=== PATIENT | female | born 1965 | race Two or more races ===

== ENCOUNTER 2019-04-14 09:04 | Day surgery (SDC) | payer OTHER ==
[2019-04-14] VITALS (11 sets, daily range): BP systolic 122–156; BP diastolic 64–85
[~2019-04-14] VITALS: Ht 162.6 cm; Wt 80.7 kg
--- NOTE | 2019-04-14 07:22 | Pre-Procedure Note/Attestation ---
Pre-Procedure Note/Attestation Complete Prior to Procedure Planned Procedure: right Procedure Narrative: shoulder arthroscopy, sad, possible rc repair Indications for Procedure Pre-Operative Diagnosis: right shoulder impingement, rct Attestation I attest that I discussed the nature of the procedure; its benefits; risks and complications; and alternatives (and the risks and benefits of such alternatives ), prior to the procedure, with the patient (or the patient's legal account service representative). I attest that, if there was a reasonable possibility of needing a blood transfusion, the patient (or the patient's legal account service representative) was given the [facility] standardized written summary, pursuant to the Eliud Antonio Blood Safety Act ([place] Health and Safety Code # 1645, as amended). I attest that I re-evaluated the patient just prior to the surgery and that there has been no change in the patient's H&P, except as documented below: Antony Colon MD Apr 14, 2019 07:22
--- NOTE | 2019-04-14 07:22 | Operative Note - PDOC ---
Operative Note Operative Note Pre-op Diagnosis: right shoulder impingement, rct Procedure: see op report Post-op Diagnosis: same as pre-op plus Operative Findings: consistent w/pre-op dx studies Anesthesia: regional, MAC Specimen: none Complications: none Condition: stable Estimated Blood Loss: none Implant(s) used?: No Antony Colon MD Apr 14, 2019 07:22
[~2019-04-14 09:04] MED LIST: HYDROcodone/Acetamin 5/325 tab ORAL PRN; ceFAZolin 1gm IVPB IVPB ONE; celeBREX 200mg Cap **SURGERY PATIENTS ONLY ORAL ONE; oxyCONTIN 20mg tab ORAL ONE
[2019-04-14] MEDS ORDERED: ATORVASTATIN CA40 MG ORAL (09:51)
[2019-04-14] MEDS ORDERED: LISINOPRIL10 MG ORAL (09:51)
[2019-04-14] MEDS ORDERED: celeBREX 200mg Cap **SURGERY PATIENTS ONLY ORAL ONE (10:00)
[2019-04-14] MEDS ORDERED: oxyCONTIN 20mg tab ORAL ONE (10:00)
[2019-04-14] MEDS ORDERED: Kenalog-40 1ml Vial ONE (11:42)
[2019-04-14] MEDS ORDERED: Duramorph PF 5mg/10ml amp ONE (11:43)
[2019-04-14] MEDS ORDERED: Ketorolac 30mg Inj ONE ×2 (11:43→12:00)
[2019-04-14] MEDS ORDERED: EPINEPHrine 1mg/1ml Amp ONE (11:44)
[2019-04-14] MEDS ORDERED: Hydromorphone 0.5mg/0.5ml inj IVP PRN (11:45)
[2019-04-14] MEDS ORDERED: Metoclopramide 10mg/2ml Inj IVP PRN (11:45)
[2019-04-14] MEDS ORDERED: LORazepam Inj 2mg/ml 1ml IV PRN (11:45)
--- NOTE | 2019-04-14 11:45 | Anethesia Preoperative Eval ---
Anesthesia Pre-op PMH/ROS General Date of Evaluation: Apr 14, 2019 Time of Evaluation: 11:42 Anesthesiologist: KANE ASA Score: ASA 2 Mallampati Score Class I : Soft palate, uvula, fauces, pillars visible Class II: Soft palate, uvula, fauces visible Class III: Soft palate, base of uvula visible Class IV: Only hard plate visible Mallampati Classification: Class I Surgeon: TASHIA Diagnosis: R SHOULDER PAIN Surgical Procedure: R SHOULDER ARTHROSCOPY Anesthesia History: none Family History: no anesthesia problems Allergies: Coded Allergies: No Known Allergies (Unverified , 04/13/19) Medications: see eMAR Patient NPO?: Yes NPO Date: Apr 13, 2019 Past Medical History Cardiovascular: Reports: HTN, other - hl Neurologic/Psychiatric: Reports: depression/anxiety PSxH Narrative: btl Anesthesia Pre-op Phys. Exam Physician Exam Last Vital Signs Date Time Temp Pulse Resp B/P (MAP) Pulse Ox O2 Delivery O2 Flow Rate FiO2 04/14/19 09:56 Room Air 04/14/19 09:45 97.5 63 18 122/69 99 Constitutional: NAD Cardiovascular: RRR Respiratory: CTA Airway Exam Mallampati Score: Class I MO: full ROM: full Anesthesia Pre-op A/P Risk Assessment & Plan Assessment: ASA 2 Plan: GETA PONV PORPHYLAXIS INTERSCALENE BLOCK Herminia Zuñiga M.D. Apr 14, 2019 11:45
[2019-04-14] MEDS ORDERED: Propofol 200mg/20ml IV ONE (12:00)
[2019-04-14] MEDS ORDERED: Lidocaine 1% MPF 10mg/ml 5ml ONE (12:00)
[2019-04-14] MEDS ORDERED: Sterile Water Irrig 1000ml IRRIG ONE (12:00)
[2019-04-14] MEDS ORDERED: LR 1000ml ONE (12:00)
[2019-04-14] MEDS ORDERED: Ropivacaine 5mg/ml Vial 30ml INJ ONE (12:00)
[2019-04-14] MEDS ORDERED: Dexamethasone 4mg/ml vial ONE (12:00)
[2019-04-14] MEDS ORDERED: fentaNYL 100 mcg/2 mL IV ONE (12:01)
[2019-04-14] MEDS ORDERED: NS Irrig 4000ml IRRIG ONE ×4 (12:29→14:03)
[2019-04-14] MEDS ORDERED: Duramorph PF 5mg/10ml amp IT ONE ×2 (12:29→12:58)
[2019-04-14] MEDS ORDERED: Succinylcholine 20mg/ml 10ml vial ONE (13:56)
--- NOTE | 2019-04-14 14:13 | 48 Hour Post Anesthesia Eval ---
Post Anesthesia Evaluation Date of Evaluation: Apr 14, 2019 Time of Evaluation: 14:12 Blood Pressure Systolic: 138 0: 79 Pulse Rate: 76 Respiratory Rate: 18 Temperature (Fahrenheit): 97.2 O2 Sat by Pulse Oximetry: 100 Airway: patent Nausea: No Vomiting: No Pain Intensity: 1 Hydration Status: adequate Mental Status/LOC: patient returned to baseline Follow-up care needed: ready to discharge Herminia Zuñiga M.D. Apr 14, 2019 14:13
[2019-04-14] MEDS ORDERED: HYDROmorphone 1mg/ml Carpuject SUBQ PRN (18:01)
[2019-04-14] MEDS ORDERED: Tylenol #3 tab (300mg/30mg) ORAL PRN (18:01)
[2019-04-14] MEDS ORDERED: D5 1/2NS 1,000 ML IV SCH (18:01)
--- NOTE | 2019-04-14 22:15 | Operative Note - Dictated ---
DATE OF OPERATION: 04/14/2019 PREOPERATIVE DIAGNOSES: 1. Right shoulder rotator cuff tear. 2. Right shoulder impingement syndrome/bursitis. POSTOPERATIVE DIAGNOSES: 1. Right shoulder rotator cuff tear. 2. Right shoulder impingement syndrome/bursitis. PROCEDURES: 1. Right shoulder arthroscopy, extensive intra-articular debridement. 2. Right shoulder subacromial decompression bursectomy. 3. Right shoulder arthroscopic rotator cuff repair. SURGEON: Antony Colon M.D. ANESTHESIA: Interscalene with general. INDICATION FOR PROCEDURE: The patient is a pleasant female with continued right shoulder pain. She failed conservative treatment. An MRI showed a high-grade possible full-thickness rotator cuff tear, elected to undergo right shoulder arthroscopy, rotator cuff repair, and subacromial decompression bursectomy. Risks, limitations, expectations, and complications of the procedure were discussed in detail. All questions were addressed. DESCRIPTION OF PROCEDURE: After informed consent was obtained, the patient was brought to the operating room. The patient was placed under interscalene with general anesthesia. Right shoulder was prepped and draped in a sterile manner. Time-out was performed. Inferolateral stab incision was then made. Trocar was introduced into the glenohumeral joint. the shoulder chondral damage. Subscap was intact. Fraying around the superior margin or the articular side of the anterior portion of supraspinatus, which seemed like it was a high-grade almost complete tear. Shaver was then easily placed through the tear into the glenohumeral joint. At this point, the camera was placed in the subacromial space. A complete bursectomy was performed. Undersurface acromion was identified. Acromioplasty was started from lateral to medial and completed from posterior to anterior. Once that was done, anchor was then placed lateral to the articular margin. Two mattress sutures were then placed along with lateral row suture. The footprint was recreated and the rotator cuff moved as a unit. The camera was positioned into the glenohumeral joint. The footprint was recreated. At this point, the instruments were removed. Portal sites were closed with 3-0 Monocryl sutures. Steri-Strips and sterile dressing were applied. ESTIMATED BLOOD LOSS: Minimal. COMPLICATIONS: None. SPECIMENS: None. IMPLANTS: Two JuggerKnot anchors.. Antony Colon M.D. DR: ORLIN JOB#: [id number] CC:
== END 2019-04-14 15:35 | disposition home or self-care (01) ==
LOC: SUR 09:04
DX: M75.101 Unspecified rotator cuff tear or rupture of right shoulder, not specified as traumatic (principal); M75.41 Impingement syndrome of right shoulder; M71.9 Bursopathy, unspecified; I10 Essential (primary) hypertension; F32.9 Major depressive disorder, single episode, unspecified; F41.9 Anxiety disorder, unspecified
CPT/HCPCS: 29823; 29826; 29827; C1713; J0171; J0330; J0690; J1100; J1885; J2704; J2795; J3010; 94003; 94150